=== PATIENT | female | born 1985 | race Two or more races ===

== ENCOUNTER 2016-12-23 23:00 | Emergency (ER) | payer MEDICAID, OTHER ==
[~2016-12-23] VITALS: Ht 152.4 cm; Wt 68.0 kg
[2016-12-23] MEDS ORDERED: KETOROLAC 30MG/ML VIAL IV ONE (23:30)
[2016-12-23] MEDS ORDERED: DIPHENHYDRAMINE 50MG/ML VIAL IV ONE (23:30)
[2016-12-23] MEDS ORDERED: SODIUM CHLORIDE 0.9% 1,000 ML IV ONE (23:30)
[2016-12-23] MEDS ORDERED: METOCLOPRAMIDE HCL 10MG/2ML VIAL IV ONE (23:30)
[2016-12-24 01:10] VITALS: BP 97/61
== END 2016-12-24 01:11 | disposition home or self-care (01) ==
LOC: ER 23:00
DX: G43.909 Migraine, unspecified, not intractable, without status migrainosus (principal)
CPT/HCPCS: 96361; 96374; 96375; 99284; J1200; J1885; J2765; J7030